=== PATIENT | female | born 1995 | race Caucasian/White ===

== ENCOUNTER 2022-05-12 21:43 | Emergency (ER) | payer BC ==
[2022-05-12] MEDS ORDERED: methylPREDNISolone NA SUCC 40 MG/1 ML VIAL IVPUSH ONE (21:54)
[2022-05-12 21:58] VITALS: BP 120/71; PULSE 76; RESP 17; TEMP 98.8; BMI 22.8
[2022-05-12] MEDS ORDERED: methylPREDNISolone NA SUCC 40 MG/1 ML VIAL ONE (22:00)
== END 2022-05-13 00:08 | disposition home or self-care (01) ==
LOC: FER 21:43
PROC: 3E033NZ Introduction of Analgesics, Hypnotics, Sedatives into Peripheral Vein, Percutaneous Approach (ICD-10-PCS; principal; 2022-05-12)
PROC: 3E033GC Introduction of Other Therapeutic Substance into Peripheral Vein, Percutaneous Approach (ICD-10-PCS; 2022-05-12)
PROC: 3E033GC Introduction of Other Therapeutic Substance into Peripheral Vein, Percutaneous Approach (ICD-10-PCS; 2022-05-12)
DX: T78.40XA Allergy, unspecified, initial encounter (principal)
CPT/HCPCS: 99284-25